=== PATIENT | male | born 1960 | race Caucasian/White ===

== ENCOUNTER 2017-03-09 05:44 | Emergency (ER) | payer OTHER ==
--- NOTE | 2017-03-09 06:10 | C.PDOC ---
History Of Present Illness Patient is a 56 year old male who presents to the ER with a complaint of right elbow pain for the last couple of days. Patient states he has been taking Aleve for the pain with no relief. 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 Patient also notes he sleeps with him arm under him- usually exacerbating the symptoms. Denies any injury or trauma. Time Seen by Provider: 03/09/17 05:59 Chief Complaint (Nursing): Upper Extremity Problem/Injury History/Exam Limitations: no limitations Onset/Duration Of Symptoms: Days (Couple) Current Symptoms Are (Timing): Still Present Exacerbating Factor(s): Worse At Night Past Medical History Reviewed: Historical Data, Nursing Documentation, Vital Signs Vital Signs: Last Vital Signs Temp 98 F 03/09/17 07:02 Pulse 79 03/09/17 07:02 Resp 20 03/09/17 07:02 BP 114/91 H 03/09/17 07:02 Pulse Ox 98 03/09/17 07:02 - Medical History PMH: CAD (had stress test over 6 years ago which was negative. ), Diabetes, HTN Surgical History: No Surg Hx - [facility] Procedures APPLICATION OF SPLINT (02/08/15) Family History: States: Unknown Family Hx - Social History Hx Tobacco Use: No Hx Alcohol Use: No Hx Substance Use: No - Immunization History Hx Tetanus Toxoid Vaccination: No Hx Influenza Vaccination: No Hx Pneumococcal Vaccination: No Review Of Systems Musculoskeletal: Positive for: Arm Pain (Right elbow pain). Negative for: Shoulder Pain, Hand Pain Physical Exam - Physical Exam Appears: Well, Non-toxic, No Acute Distress Skin: Normal Color, Warm, Dry Head: Atraumatic, Normacephalic Eye(s): bilateral: Normal Inspection, EOMI Nose: Normal Oral Mucosa: Moist Chest: Symmetrical Respiratory: No Accessory Muscle Use, Other (Speaking in full sentences) Extremity: Normal ROM, Tenderness (TTP and mild swelling to Right radial aspect of elbow), Capillary Refill (< 2 sec), Other (No erythema, increased warmth, or deformity of right elbow.) Pulses: Left Radial: Normal, Right Radial: Normal Neurological/Psych: Oriented x3, Normal Speech, Normal Motor, Normal Sensation, Other (No focal deficits.) ED Course And Treatment O2 Sat by Pulse Oximetry: 100 (Room air) Pulse Ox Interpretation: Normal Progress Note: Ultram PO administered. X-ray of the right elbow ordered. SILVIO wrap applied and patient advised to follow up with orthopedics in 1-2 days. Disposition - Disposition Disposition: HOME/ ROUTINE Disposition Time: 06:53 Condition: GOOD Additional Instructions: Rest and ice the area. Follow up with bone doctor in 1-2 days. Return to ER if symtpoms persist or worsen. Prescriptions: Meloxicam [Mobic] 15 mg PO DAILY #20 tab Instructions: Tennis Elbow (ED) - Clinical Impression Clinical Impression: Tendonitis - Scribe Statement The provider has reviewed the documentation as recorded by the Scribe Jose Francisco Hirsch All medical record entries made by the Scribe were at my direction and personally dictated by me. I have reviewed the chart and agree that the record accurately reflects my personal performance of the history, physical exam, medical decision making, and the department course for this patient. I have also personally directed, reviewed, and agree with the discharge instructions and disposition.
[2017-03-09 07:04] VITALS: BP 114/91; PULSE 79; RESP 20; TEMP 98
--- NOTE | 2017-03-09 08:21 | RAD ---
PROCEDURE: Radiographs of the right elbow. HISTORY: pain COMPARISON: No prior. FINDINGS: BONES: Normal. No fracture. JOINTS: Normal. No osteoarthritis. SOFT TISSUES: Normal. JOINT EFFUSION: None. OTHER FINDINGS: None. IMPRESSION: Unremarkable radiographs of the right elbow.
[2017-03-11 15:49] VITALS: O2SAT 100
== END 2017-03-09 07:02 | disposition home or self-care (01) ==
LOC: C.ER 05:44
DX: M77.9 Enthesopathy, unspecified (principal)

== ENCOUNTER 2017-05-22 11:11 | Inpatient (IN) | payer OTHER ==
[2017-05-22 12:32] LABS: BASO # 0.1 K/uL (0.0-0.2); BASO % 1.1 % (0.0-2.0); EOS # 0.3 K/uL (0.0-0.7); EOS % 4.8 % (0.0-4.0); HEMOGLOBIN 15.4 g/dL (12.0-18.0); LYMPH % 27.5 % (20.0-40.0); MEAN CELL VOLUME 82.2 fL (80.0-94.0); MEAN CORPUSCULAR HEMOGLOBIN 27.2 pg (27.0-31.0); MEAN CORPUSCULAR HGB CONC 33.1 g/dL (33.0-37.0); MEAN PLATELET VOLUME 8.5 fL (7.2-11.7); MONO # 0.6 K/uL (0.0-0.8); MONO % 7.6 % (0.0-10.0); NEUT # 4.3 K/uL (1.8-7.0); NRBC % 0.1 % (0.0-2.0); RBC 5.67 Mil/uL (4.40-5.90); RED CELL DISTRIBUTION WIDTH 14.5 % (11.5-14.5); WHITE BLOOD COUNT 7.3 K/uL (4.8-10.8)
[2017-05-22 12:41] LABS: PROTHROMBIN TIME 11.1 SECONDS (9.7-12.2)
[2017-05-22 12:43] LABS: GFR AFRICAN-AMERICAN > 60; GFR NON-AFRICAN AMERICAN > 60
[2017-05-22 12:44] LABS: ALB/GLOB RATIO 1.1 (1.0-2.1); ALT/SGPT 47 U/L (21-72); AST/SGOT 28 U/L (17-59); BLOOD UREA NITROGEN 14 mg/dL (9-20); LIPASE 53 U/L (23-300)
--- NOTE | 2017-05-22 12:49 | C.PDOC ---
History Of Present Illness 56 y/o male c/o left sided chest pain intermittently since Sunday, described as a sharp sensation. Patient also complaining of upper back pain that has been going on for longer amount of time. He is unsure if chest pain radiates to the back or not. Patient denies SOB, cough, fever, palpitatins, nausea, vomiting. Patient with PMHx of HTN and DM. He denies cardiac history in himself/family members, is a non-smoker. Time Seen by Provider: 05/22/17 11:58 Chief Complaint (Nursing): Chest Pain History Per: Patient History/Exam Limitations: no limitations Onset/Duration Of Symptoms: Intermittent Episodes Current Symptoms Are (Timing): Still Present Severity: Moderate Associated Symptoms: denies: Nausea, Diaphoresis Recent travel outside of the [place]: No Past Medical History Reviewed: Historical Data, Nursing Documentation, Vital Signs Vital Signs: Last Vital Signs Temp 98.2 F 05/25/17 07:20 Pulse 77 05/25/17 07:20 Resp 18 05/25/17 07:20 BP 121/79 05/25/17 07:20 Pulse Ox 96 05/25/17 07:20 - Medical History PMH: CAD (had stress test over 6 years ago which was negative. ), Diabetes, HTN - [facility] Procedures APPLICATION OF SPLINT (02/08/15) Family History: States: No Known Family Hx - Social History Hx Tobacco Use: No Hx Alcohol Use: No Hx Substance Use: No - Immunization History Hx Tetanus Toxoid Vaccination: No Hx Influenza Vaccination: No Hx Pneumococcal Vaccination: No Review Of Systems Except As Marked, All Systems Reviewed And Found Negative. Constitutional: Negative for: Fever, Chills Cardiovascular: Positive for: Chest Pain. Negative for: Palpitations Respiratory: Negative for: Cough, Shortness of Breath, Wheezing Gastrointestinal: Negative for: Nausea, Vomiting, Abdominal Pain Musculoskeletal: Positive for: Back Pain Skin: Negative for: Rash Neurological: Negative for: Headache, Dizziness Physical Exam - Physical Exam Appears: Non-toxic, No Acute Distress, Other (speaking in full sentences, comfortable) Skin: Normal Color, Warm, Dry, No Rash Head: Normacephalic Eye(s): bilateral: Normal Inspection Oral Mucosa: Moist Chest: Symmetrical, No Tenderness Cardiovascular: Rhythm Regular Respiratory: Normal Breath Sounds, No Rales, No Rhonchi, No Wheezing Gastrointestinal/Abdominal: Normal Exam, Bowel Sounds, Soft, No Tenderness, No Guarding, No Rebound Back: Normal Inspection Extremity: Normal ROM, No Pedal Edema, No Calf Tenderness Extremity: Bilateral: Normal Color And Temperature Neurological/Psych: Oriented x3 ED Course And Treatment - Laboratory Results Result Diagrams: 05/24/17 06:06 05/24/17 06:06 ECG: Interpreted By Me, Viewed By Me (NSR 81 bpm, left axis deviation, no acte ST/T wave changes) ECG Rhythm: Sinus Rhythm ECG Interpretation: No Acute Changes O2 Sat by Pulse Oximetry: 96 (RA) Pulse Ox Interpretation: Normal - Other Rad CXR X-Ray: Viewed By Me, Read By Radiologist Interpretation: IMPRESSION: No acute cardiopulmonary disease. No significant change compared to 11/23/2014 prior radiograph. Progress Note: Bloodwork, EKG, CxR ordered and reviewed. Patient given PO ASA. (+) history of cardiac risk factors, will need obs tele to r/o ACS. Reevaluation Time: 15:10 Reassessment Condition: Improved (Patient resting comfortably, without current chest pain.) - Physician Consult Information Physician Contacted: Brandon Fraser Outcome Of Conversation: Discussed patient with Dr. Fraser, agrees with obs tele for chest pain r/o ACS. Disposition - Disposition Disposition: HOSPITALIZED Disposition Time: 15:14 Condition: STABLE - Clinical Impression Clinical Impression: Chest pain - Scribe Statement The provider has reviewed the documentation as recorded by the Arlen eBaulieu Provider Attestation: All medical record entries made by the Milliibmelissa were at my direction and personally dictated by me. I have reviewed the chart and agree that the record accurately reflects my personal performance of the history, physical exam, medical decision making, and the department course for this patient. I have also personally directed, reviewed, and agree with the discharge instructions and disposition. Decision To Admit - Pt Status Changed To: Hospital Disposition Of: Observation - . Bed Request Type: Telemetry Admitting Physician: Brandon Fraser Patient Diagnosis: Chest pain
[2017-05-22 12:53] LABS: CK-MB 2.33 ng/mL (0.0-3.38)
--- NOTE | 2017-05-22 12:53 | RAD ---
HISTORY: CP COMPARISON: Comparison made prior chest radiograph dated 11/23/2014. TECHNIQUE: Chest PA and lateral FINDINGS: LUNGS: No active pulmonary disease. PLEURA: No significant pleural effusion identified. No pneumothorax apparent. CARDIOVASCULAR: Normal. OSSEOUS STRUCTURES: No significant abnormalities. VISUALIZED UPPER ABDOMEN: Normal. OTHER FINDINGS: None. IMPRESSION: No acute cardiopulmonary disease. No significant change compared to 11/23/2014 prior radiograph.
--- NOTE | 2017-05-22 16:50 | CP.PCM.PN ---
Subjective - Date & Time of Evaluation Date of Evaluation: 05/22/17 Time of Evaluation: 17:27 - Subjective Subjective: MEDICINE PROGRESS NOTE FOR DR. MARTINEZ CC: chest pain HPI: 56 year old male with PMHx significant for HTN and DM presents with complaints of non-reproducible chest pain which began on Sunday. The pain is non -radiating and has been intermittent in nature; waxing and waning with varying intensity. He states that he did not see a need to go to the hospital and continued with his daily activities. On his way to work this morning, patient states that he experienced a sharp left sided substernal pain which he rated approx 8/10. Patient states that he decided to go straight to the hospital for further evaluation. He admits to blurry vision. Patient denies shortness of breath, palpitations, nausea, vomiting, paresthesias, headaches, or bowel changes at this time. PMHx- as noted above PSHX- Repair of left meniscus tear Fam Hx- denies Social Hx- denies drinking alcohol, illicit drug use or tobacco use Meds- Januvia 100 mg PO daily, Metformin 500 mg PO BID, Cozaar 100 mg PO daily , Norvasc 5mg PO daily, Naproxen PRN as needed Allergies- Sulfa ( causes pruritus) PMD- Dr Yeni Lopez ( office in [facility]) Objective - Vital Signs/Intake and Output Vital Signs (last 24 hours): Temp Pulse Resp BP Pulse Ox 97.9 F 82 23 139/90 95 05/22/17 11:15 05/22/17 15:57 05/22/17 15:57 05/22/17 15:57 05/22/17 15:57 - Labs Labs: PT 11.1 SECONDS (9.7-12.2) 05/22/17 12:29 INR 1.0 05/22/17 12:29 APTT 29 SECONDS (21-34) 05/22/17 12:29 - Constitutional Appears: Non-toxic, No Acute Distress - Head Exam Head Exam: ATRAUMATIC, NORMAL INSPECTION, NORMOCEPHALIC - Eye Exam Eye Exam: EOMI, Normal appearance, PERRL Pupil Exam: NORMAL ACCOMODATION, PERRL - ENT Exam ENT Exam: Mucous Membranes Moist - Neck Exam Neck Exam: Full ROM - Respiratory Exam Respiratory Exam: NORMAL BREATHING PATTERN. absent: Wheezes - Cardiovascular Exam Cardiovascular Exam: +S1, +S2. absent: Tachycardia - GI/Abdominal Exam GI & Abdominal Exam: Soft, Normal Bowel Sounds. absent: Distended, Firm - Extremities Exam Extremities Exam: Full ROM, Normal Capillary Refill. absent: Pedal Edema, Tenderness - Back Exam Back Exam: Full ROM - Neurological Exam Neurological Exam: Alert, Awake, Oriented x3 - Psychiatric Exam Psychiatric exam: Normal Affect, Normal Mood - Skin Skin Exam: Dry, Intact, Normal Color, Warm Assessment and Plan (1) Chest pain Assessment & Plan: RENNY 1 negative F/U ROMIs with EKGS Telemetry Heart Healthy diet Cont to monitor ASA 325 mg given in ED. ASA 81 mg daily to start, Crestor 2.5 mg PO daily, Zestril 5 mg PO daily, Lopressor 25 mg PO BID F/U AM labs Status: Acute (2) Hypertension Assessment & Plan: Amlodipine 5 mg PO daily Cozaar 100 mg PO daily Lopressor Zestril Cont to monitor Status: Acute (3) Diabetes mellitus Assessment & Plan: Accuchecks ISS Low dose Metformin 500 mg PO BID Januvia 100 mg PO daily F/U Hgb a1c, Lipid panel and AM labs Status: Acute (4) Prophylactic measure Assessment & Plan: SCDs Pepcid 20 mg PO BID Status: Acute - Assessment and Plan (Free Text) Assessment: Management per Dr. Martinez
[2017-05-22 19:58] LABS: CK-MB 1.84 ng/mL (0.0-3.38)
[2017-05-22] MEDS: Rosuvastatin Calcium 2.5 mg Tab PO SCH (21:34)
[2017-05-22] MEDS: (Novolog) Insulin Aspart, Recombinant 100 u/ml 10 ml vial SC SCH (22:00)
[2017-05-23 01:49] LABS: CK-MB 1.53 ng/mL (0.0-3.38)
[2017-05-23 06:42] LABS: BASO # 0.1 K/uL (0.0-0.2); BASO % 0.8 % (0.0-2.0); EOS # 0.4 K/uL (0.0-0.7); EOS % 4.5 % (0.0-4.0); HEMOGLOBIN 15.9 g/dL (12.0-18.0); LYMPH # 2.2 K/uL (1.0-4.3); LYMPH % 28.5 % (20.0-40.0); MEAN CELL VOLUME 82.1 fL (80.0-94.0); MEAN CORPUSCULAR HEMOGLOBIN 27.4 pg (27.0-31.0); MEAN CORPUSCULAR HGB CONC 33.3 g/dL (33.0-37.0); MEAN PLATELET VOLUME 8.8 fL (7.2-11.7); MONO # 0.6 K/uL (0.0-0.8); MONO % 7.4 % (0.0-10.0); NEUT # 4.6 K/uL (1.8-7.0); NEUT % 58.8 % (50.0-75.0); RBC 5.81 Mil/uL (4.40-5.90); RED CELL DISTRIBUTION WIDTH 14.9 % (11.5-14.5); WHITE BLOOD COUNT 7.8 K/uL (4.8-10.8)
[2017-05-23 06:44] LABS: ALBUMIN 3.8 g/dL (3.5-5.0)
[2017-05-23 06:47] LABS: ALB/GLOB RATIO 1.1 (1.0-2.1); ALT/SGPT 43 U/L (21-72); AST/SGOT 25 U/L (17-59); BLOOD UREA NITROGEN 16 mg/dL (9-20); CK-MB 1.69 ng/mL (0.0-3.38); GFR AFRICAN-AMERICAN > 60; GFR NON-AFRICAN AMERICAN > 60
[2017-05-23 06:48] LABS: HDL CHOLESTEROL 34 mg/dL (30-70); MAGNESIUM 1.7 mg/dL (1.6-2.3)
[2017-05-23 06:59] LABS: LDL CHOLESTEROL 98 mg/dL (0-129)
[2017-05-23] MEDS: (Novolog) Insulin Aspart, Recombinant 100 u/ml 10 ml vial SC SCH ×4 (08:42→22:30)
--- NOTE | 2017-05-23 16:25 | CP.PCM.PN ---
Subjective - Date & Time of Evaluation Date of Evaluation: 05/23/17 Time of Evaluation: 10:23 - Subjective Subjective: PGY 2 Medicine Note- Dr. Ferris's service Pt seen and examined . Patient reported of a headache which later responded to tylenol. Patient states that his chest pain returned for afew minutes around 11 am but later resolved as well. On further questioning patient admitted to having poor diet choices. Patient states that he consumed a lot of soda and sugary beverages daily. He admitted to putting 8 packets of sugar in each cup of coffee that he has daily. Patient stated that he would like to make changes. He denies palpitations, nausea, vomiting, diarrhea, constipation at this time. Objective - Vital Signs/Intake and Output Vital Signs (last 24 hours): Temp Pulse Resp BP Pulse Ox 98.0 F 67 20 134/90 97 05/23/17 08:24 05/23/17 15:59 05/23/17 08:24 05/23/17 09:53 05/23/17 08:24 - Medications Medications: Current Medications Amlodipine Besylate (Norvasc) [address] [facility] Last Admin: 05/23/17 09:34 Dose: 5 mg Aspirin (Ecotrin) [address] [facility] Last Admin: 05/23/17 09:34 Dose: 81 mg Famotidine (Pepcid) [address] [facility] Last Admin: 05/23/17 09:34 Dose: 20 mg Insulin Aspart (Novolog) [address] [facility] PRN Reason: Protocol Last Admin: 05/23/17 12:30 Dose: 2 unit Lisinopril (Zestril) [address] [facility] Last Admin: 05/23/17 09:34 Dose: 5 mg Losartan Potassium (Cozaar) [address] [facility] Last Admin: 05/23/17 09:34 Dose: 100 mg Metformin HCl (Glucophage) [address] [facility] Last Admin: 05/23/17 09:34 Dose: 500 mg Metoprolol Tartrate (Lopressor) 12.[address] [facility] Rosuvastatin Calcium (Crestor) 2.[address] [facility] Last Admin: 05/22/17 21:34 Dose: 2.5 mg Sitagliptin Phosphate (Januvia) [address] [facility] Last Admin: 05/23/17 09:34 Dose: 100 mg - Labs Labs: 05/23/17 06:06 05/23/17 06:06 PT 11.1 SECONDS (9.7-12.2) 05/22/17 12:29 INR 1.0 05/22/17 12:29 APTT 29 SECONDS (21-34) 05/22/17 12:29 - Constitutional Appears: Non-toxic, No Acute Distress - Head Exam Head Exam: ATRAUMATIC, NORMAL INSPECTION, NORMOCEPHALIC - Eye Exam Eye Exam: EOMI, Normal appearance, PERRL Pupil Exam: NORMAL ACCOMODATION - ENT Exam ENT Exam: Mucous Membranes Moist, Normal Exam - Neck Exam Neck Exam: Full ROM, Normal Inspection - Respiratory Exam Respiratory Exam: Clear to Ausculation Bilateral, NORMAL BREATHING PATTERN. absent: Wheezes - Cardiovascular Exam Cardiovascular Exam: +S1, +S2 - GI/Abdominal Exam GI & Abdominal Exam: Soft, Normal Bowel Sounds - Extremities Exam Extremities Exam: Full ROM, Normal Capillary Refill. absent: Pedal Edema, Tenderness - Back Exam Back Exam: Full ROM - Neurological Exam Neurological Exam: Alert, Awake, CN II-XII Intact, Oriented x3 - Psychiatric Exam Psychiatric exam: Normal Affect, Normal Mood - Skin Skin Exam: Dry, Intact, Normal Color, Warm Assessment and Plan (1) Chest pain Status: Acute (2) Hypertension Status: Chronic (3) Diabetes mellitus Status: Chronic (4) Prophylactic measure Status: Acute - Assessment and Plan (Free Text) Assessment: Chest pain Assessment & Plan: ERNNY x 3 negative EKG- NSR, possible left atrial enlargement Telemetry Heart Healthy diet Cont to monitor ASA 325 mg given in ED. ASA 81 mg daily to start, Crestor 2.5 mg PO daily, Zestril 5 mg PO daily, Lopressor decreased to 12.5 mg PO BID in light of hypothyroidism Triglycerides 276, HDL 34, LDL 98 Stress test in AM; NPO past midnight Status: Acute Hypertension Assessment & Plan: Amlodipine 5 mg PO daily Cozaar 100 mg PO daily Lopressor Zestril Cont to monitor Status: Acute Diabetes mellitus Assessment & Plan: Accuchecks ISS Low dose Metformin 500 mg PO BID Januvia 100 mg PO daily Hgb a1c 11.7 ,Patient's A1c in 2014 was 7.1. Lipid panel as noted above and AM labs Patient is active in sports. Dietary counseling reinforced Patient needs stricter control outpatient as well. Will benefit from insulin. Status: Acute Hypothyroid TSH 10.10 Free T4 0.75 Will start synthroid Patient will need outpatient followup Prophylactic measure Assessment & Plan: SCDs Pepcid 20 mg PO BID Status: Acute - Assessment and Plan (Free Text) Assessment: All Management per Dr. Ferris
--- NOTE | 2017-05-23 22:09 | CP.PCM.CON ---
History of Present Illness - History of Present Illness History of Present Illness: patient seen and evaluated Admitted for chest pain Multiple risk factors including DM 2 For stress test in am Past Patient History - Infectious Disease Hx of Infectious Diseases: None - Past Medical History & Family History Past Medical History?: Yes - Past Social History Smoking Status: Never Smoked - CARDIAC Hx Hypertension: Yes - PULMONARY Hx Respiratory Disorders: No - NEUROLOGICAL Hx Neurological Disorder: No - HEENT Hx HEENT Problems: Yes Other/Comment: left eye surgery - RENAL Hx Chronic Kidney Disease: No - ENDOCRINE/METABOLIC Hx Endocrine Disorders: Yes Hx Diabetes Mellitus Type 2: Yes - HEMATOLOGICAL/ONCOLOGICAL Hx Blood Disorders: No Hx Blood Transfusions: No - INTEGUMENTARY Hx Dermatological Problems: No - MUSCULOSKELETAL/RHEUMATOLOGICAL Hx Falls: No - GASTROINTESTINAL Hx Gastrointestinal Disorders: No - GENITOURINARY/GYNECOLOGICAL Hx Genitourinary Disorders: No - PSYCHIATRIC Hx Substance Use: No - SURGICAL HISTORY Hx Surgeries: Yes Hx Eye Surgery: Yes (corneal surgery) Hx Orthopedic Surgery: Yes (LEFT KNEE MINISCUS REPAIR) - ANESTHESIA Hx Anesthesia: Yes Hx Anesthesia Reactions: No Hx Malignant Hyperthermia: No Has any member of the family had a problem w/ anesthesia?: No Meds Allergies/Adverse Reactions: Allergies Allergy/AdvReac Type Severity Reaction Status Date / Time Sulfa (Sulfonamide Allergy Verified 05/22/17 11:16 Antibiotics) - Medications Medications: Current Medications Amlodipine Besylate (Norvasc) 5 mg PO DAILY [facility] Last Admin: 05/23/17 09:34 Dose: 5 mg Aspirin (Ecotrin) 81 mg PO DAILY [facility] Last Admin: 05/23/17 09:34 Dose: 81 mg Famotidine (Pepcid) 20 mg PO BID [facility] Last Admin: 05/23/17 18:13 Dose: 20 mg Insulin Aspart (Novolog) 0 unit SC ACHS [facility] PRN Reason: Protocol Last Admin: 05/23/17 18:13 Dose: 2 unit Levothyroxine Sodium (Synthroid) 100 mcg PO DAILY@0630 [facility] Lisinopril (Zestril) 5 mg PO DAILY [facility] Last Admin: 05/23/17 09:34 Dose: 5 mg Losartan Potassium (Cozaar) 100 mg PO DAILY [facility] Last Admin: 05/23/17 09:34 Dose: 100 mg Metformin HCl (Glucophage) 500 mg PO BID [facility] Last Admin: 05/23/17 18:13 Dose: 500 mg Metoprolol Tartrate (Lopressor) 12.5 mg PO BID [facility] Rosuvastatin Calcium (Crestor) 2.5 mg PO HS [facility] Last Admin: 05/22/17 21:34 Dose: 2.5 mg Sitagliptin Phosphate (Januvia) 100 mg PO DAILY [facility] Last Admin: 05/23/17 09:34 Dose: 100 mg Results - Vital Signs Recent Vital Signs: Last Vital Signs Temp 97.8 F 05/23/17 16:00 Pulse 69 05/23/17 16:00 Resp 20 05/23/17 16:00 BP 116/72 05/23/17 16:00 Pulse Ox 95 05/23/17 16:00 - Labs Result Diagrams: 05/23/17 06:06 05/23/17 06:06 Labs: Laboratory Results - last 24 hr 05/23/17 05/23/17 05/23/17 00:48 06:06 06:06 WBC 7.8 RBC 5.81 Hgb 15.9 Hct 47.7 MCV 82.1 MCH 27.4 MCHC 33.3 RDW 14.9 H Plt Count 349 MPV 8.8 Neut % (Auto) 58.8 Lymph % (Auto) 28.5 [place] % (Auto) 7.4 Eos % (Auto) 4.5 H Baso % (Auto) 0.8 Neut # 4.6 Lymph # 2.2 [place] # 0.6 Eos # 0.4 Baso # 0.1 Sodium 134 Potassium 3.9 Chloride 98 Carbon Dioxide 24 Anion Gap 16 BUN 16 Creatinine 1.0 Est GFR ( Amer) > 60 Est GFR (Non-Af Amer) > 60 POC Glucose (mg/dL) Random Glucose 252 H Hemoglobin A1c Calcium 9.0 Phosphorus 3.0 Magnesium 1.7 Total Bilirubin 0.8 AST 25 ALT 43 Alkaline Phosphatase 103 Total Creatine Kinase 129 114 CK-MB (Mass) 1.53 1.69 Troponin I, Quant < 0.0120 Total Protein 7.5 Albumin 3.8 Globulin 3.6 Albumin/Globulin Ratio 1.1 Triglycerides 276 H D Cholesterol 179 LDL Cholesterol Direct 98 HDL Cholesterol 34 Free T4 TSH 3rd Generation 10.10 H 05/23/17 05/23/17 05/23/17 06:06 06:06 06:06 WBC RBC Hgb Hct MCV MCH MCHC RDW Plt Count MPV Neut % (Auto) Lymph % (Auto) [place] % (Auto) Eos % (Auto) Baso % (Auto) Neut # Lymph # [place] # Eos # Baso # Sodium Potassium Chloride Carbon Dioxide Anion Gap BUN Creatinine Est GFR ( Amer) Est GFR (Non-Af Amer) POC Glucose (mg/dL) 232 H Random Glucose Hemoglobin A1c 11.7 H D Calcium Phosphorus Magnesium Total Bilirubin AST ALT Alkaline Phosphatase Total Creatine Kinase CK-MB (Mass) Troponin I, Quant Total Protein Albumin Globulin Albumin/Globulin Ratio Triglycerides Cholesterol LDL Cholesterol Direct HDL Cholesterol Free T4 0.75 L TSH 3rd Generation 05/23/17 05/23/17 05/23/17 11:04 16:20 21:43 WBC RBC Hgb Hct MCV MCH MCHC RDW Plt Count MPV Neut % (Auto) Lymph % (Auto) [place] % (Auto) Eos % (Auto) Baso % (Auto) Neut # Lymph # [place] # Eos # Baso # Sodium Potassium Chloride Carbon Dioxide Anion Gap BUN Creatinine Est GFR ( Amer) Est GFR (Non-Af Amer) POC Glucose (mg/dL) 248 H 208 H 227 H Random Glucose Hemoglobin A1c Calcium Phosphorus Magnesium Total Bilirubin AST ALT Alkaline Phosphatase Total Creatine Kinase CK-MB (Mass) Troponin I, Quant Total Protein Albumin Globulin Albumin/Globulin Ratio Triglycerides Cholesterol LDL Cholesterol Direct HDL Cholesterol Free T4 TSH 3rd Generation
[2017-05-23] MEDS: Rosuvastatin Calcium 2.5 mg Tab PO SCH (22:15)
[2017-05-24 06:22] LABS: ALBUMIN 3.6 g/dL (3.5-5.0)
[2017-05-24 06:24] LABS: GFR AFRICAN-AMERICAN > 60; GFR NON-AFRICAN AMERICAN > 60
[2017-05-24 06:25] LABS: ALB/GLOB RATIO 1.1 (1.0-2.1); ALT/SGPT 44 U/L (21-72); AST/SGOT 23 U/L (17-59); BLOOD UREA NITROGEN 18 mg/dL (9-20)
[2017-05-24 06:26] LABS: CALCIUM 8.7 mg/dl (8.6-10.4); MAGNESIUM 1.7 mg/dL (1.6-2.3)
[2017-05-24 06:32] LABS: BASO # 0.1 K/uL (0.0-0.2); BASO % 0.9 % (0.0-2.0); EOS # 0.4 K/uL (0.0-0.7); EOS % 4.2 % (0.0-4.0); HEMOGLOBIN 15.6 g/dL (12.0-18.0); LYMPH # 2.2 K/uL (1.0-4.3); LYMPH % 25.3 % (20.0-40.0); MEAN CELL VOLUME 82.4 fL (80.0-94.0); MEAN CORPUSCULAR HEMOGLOBIN 26.9 pg (27.0-31.0); MEAN CORPUSCULAR HGB CONC 32.6 g/dL (33.0-37.0); MEAN PLATELET VOLUME 8.7 fL (7.2-11.7); MONO # 0.7 K/uL (0.0-0.8); MONO % 7.7 % (0.0-10.0); NEUT # 5.4 K/uL (1.8-7.0); NEUT % 61.9 % (50.0-75.0); RBC 5.81 Mil/uL (4.40-5.90); RED CELL DISTRIBUTION WIDTH 14.9 % (11.5-14.5); WHITE BLOOD COUNT 8.7 K/uL (4.8-10.8)
[2017-05-24] MEDS: Levothyroxine 100 MCG TAB PO SCH (06:41)
[2017-05-24] MEDS: (Novolog) Insulin Aspart, Recombinant 100 u/ml 10 ml vial SC SCH ×5 (08:55→21:38)
--- NOTE | 2017-05-24 11:47 | CARD ---
APPROVED REPORT EKG Measurement Heart [id number] <Conclusion> Normal sinus rhythm Possible Left atrial enlargement Poor R wave progression. Abnormal ECG
--- NOTE | 2017-05-24 15:18 | CP.PCM.PN ---
Subjective - Date & Time of Evaluation Date of Evaluation: 05/24/17 Time of Evaluation: 13:00 - Subjective Subjective: PGY3 Medicine Note - Dr. Ferris's service: Patient seen and examined at bedside s/p Lexiscan. Patient was only able to tolerate exercise stress test for [address] Melton decided to do a lexiscan. We are awaiting results. Patient denies fever, chills, chest pain, SOB, abdominal pain, nausea, vomiting, diarrhea, constipation, dysuria. Objective - Vital Signs/Intake and Output Vital Signs (last 24 hours): Temp Pulse Resp BP Pulse Ox 98.2 F 68 118 H 117/79 99 05/24/17 08:08 05/24/17 08:08 05/24/17 08:08 05/24/17 08:08 05/24/17 08:08 - Medications Medications: Current Medications Amlodipine Besylate (Norvasc) 5 mg PO DAILY [facility] Last Admin: 05/24/17 12:43 Dose: 5 mg Aspirin (Ecotrin) 81 mg PO DAILY [facility] Last Admin: 05/24/17 12:43 Dose: 81 mg Famotidine (Pepcid) 20 mg PO BID [facility] Last Admin: 05/24/17 12:43 Dose: 20 mg Insulin Aspart (Novolog) 0 unit SC ACHS [facility] PRN Reason: Protocol Last Admin: 05/24/17 12:44 Dose: 4 unit Levothyroxine Sodium (Synthroid) 100 mcg PO DAILY@0630 [facility] Last Admin: 05/24/17 06:41 Dose: 100 mcg Lisinopril (Zestril) 5 mg PO DAILY [facility] Last Admin: 05/24/17 12:43 Dose: 5 mg Losartan Potassium (Cozaar) 100 mg PO DAILY [facility] Last Admin: 05/24/17 12:43 Dose: 100 mg Metformin HCl (Glucophage) 500 mg PO BID [facility] Last Admin: 05/24/17 11:55 Dose: Not Given Metoprolol Tartrate (Lopressor) 12.5 mg PO BID [facility] Last Admin: 05/24/17 11:55 Dose: Not Given Rosuvastatin Calcium (Crestor) 2.5 mg PO HS [facility] Last Admin: 05/23/17 22:15 Dose: 2.5 mg Sitagliptin Phosphate (Januvia) 100 mg PO DAILY [facility] Last Admin: 05/24/17 12:43 Dose: 100 mg - Labs Labs: 05/24/17 06:06 05/24/17 06:06 PT 11.1 SECONDS (9.7-12.2) 05/22/17 12:29 INR 1.0 05/22/17 12:29 APTT 29 SECONDS (21-34) 05/22/17 12:29 - Constitutional Appears: Non-toxic, No Acute Distress - Head Exam Head Exam: NORMAL INSPECTION - Eye Exam Eye Exam: EOMI - ENT Exam ENT Exam: Mucous Membranes Moist - Respiratory Exam Respiratory Exam: Clear to Ausculation Bilateral, NORMAL BREATHING PATTERN. absent: Rales, Rhonchi, Wheezes - Cardiovascular Exam Cardiovascular Exam: REGULAR RHYTHM, +S1, +S2. absent: Gallop, Rubs, Murmur - GI/Abdominal Exam GI & Abdominal Exam: Soft, Normal Bowel Sounds. absent: Tenderness - Extremities Exam Extremities Exam: absent: Pedal Edema - Neurological Exam Neurological Exam: Alert, Awake, Oriented x3 - Psychiatric Exam Psychiatric exam: Normal Affect, Normal Mood - Skin Skin Exam: Normal Color, Warm Assessment and Plan - Assessment and Plan (Free Text) Assessment: Chest pain Assessment & Plan: RENNY x 3 negative EKG- NSR, possible left atrial enlargement Telemetry Heart Healthy diet Cont to monitor ASA 325 mg given in ED. ASA 81 mg daily to start, Crestor 2.5 mg PO daily, Zestril 5 mg PO daily, Lopressor decreased to 12.5 mg PO BID in light of hypothyroidism Triglycerides 276, HDL 34, LDL 98 F/U results of Lexiscan Status: Acute Hypertension Assessment & Plan: Amlodipine 5 mg PO daily Cozaar 100 mg PO daily Lopressor Zestril Cont to monitor Status: Acute Diabetes mellitus Assessment & Plan: Accuchecks ISS Low dose Metformin 500 mg PO BID Januvia 100 mg PO daily Hgb a1c 11.7 ,Patient's A1c in 2014 was 7.1. Lipid panel as noted above and AM labs Patient is active in sports. Dietary counseling reinforced Patient needs stricter control outpatient as well. Will benefit from insulin. Status: Acute Hypothyroid TSH 10.10 Free T4 0.75 Synthroid 100mcg PO daily started Patient will need outpatient followup Prophylactic measure Assessment & Plan: SCDs Pepcid 20 mg PO BID Status: Acute
[2017-05-24 16:46] VITALS: O2SAT 96
[2017-05-24] MEDS: Rosuvastatin Calcium 2.5 mg Tab PO SCH (21:25)
--- NOTE | 2017-05-24 22:24 | CP.PCM.PN ---
Subjective - Date & Time of Evaluation Date of Evaluation: 05/24/17 Time of Evaluation: 22:21 - Subjective Subjective: Patient s/p stress test Patient exercised for more than 8 minutes with 11.4 METS Target Heart Rate achieved No EKG changes or Chest pain during the peak stress test There is some diaphragmatic attenuation in stress images Normal stress test Out patient cardiology follow up in 1 month Objective - Vital Signs/Intake and Output Vital Signs (last 24 hours): Temp Pulse Resp BP Pulse Ox 97.7 F 83 20 111/78 96 05/24/17 15:45 05/24/17 15:45 05/24/17 15:45 05/24/17 15:45 05/24/17 15:45 - Medications Medications: Current Medications Amlodipine Besylate (Norvasc) 5 mg PO DAILY [facility] Last Admin: 05/24/17 12:43 Dose: 5 mg Aspirin (Ecotrin) 81 mg PO DAILY [facility] Last Admin: 05/24/17 12:43 Dose: 81 mg Famotidine (Pepcid) 20 mg PO BID [facility] Last Admin: 05/24/17 18:10 Dose: 20 mg Insulin Aspart (Novolog) 0 unit SC [facility] PRN Reason: Protocol Last Admin: 05/24/17 21:38 Dose: Not Given Levothyroxine Sodium (Synthroid) 100 mcg PO DAILY@0630 [facility] Last Admin: 05/24/17 06:41 Dose: 100 mcg Lisinopril (Zestril) 5 mg PO DAILY [facility] Last Admin: 05/24/17 12:43 Dose: 5 mg Losartan Potassium (Cozaar) 100 mg PO DAILY [facility] Last Admin: 05/24/17 12:43 Dose: 100 mg Metformin HCl (Glucophage) 500 mg PO BID [facility] Last Admin: 05/24/17 18:02 Dose: 500 mg Metoprolol Tartrate (Lopressor) 12.5 mg PO BID [facility] Last Admin: 05/24/17 18:02 Dose: 12.5 mg Rosuvastatin Calcium (Crestor) 2.5 mg PO HS [facility] Last Admin: 05/24/17 21:25 Dose: 2.5 mg Sitagliptin Phosphate (Januvia) 100 mg PO DAILY [facility] Last Admin: 05/24/17 12:43 Dose: 100 mg - Labs Labs: PT 11.1 SECONDS (9.7-12.2) 05/22/17 12:29 INR 1.0 05/22/17 12:29 APTT 29 SECONDS (21-34) 05/22/17 12:29
--- NOTE | 2017-05-24 23:30 | CARD ---
APPROVED REPORT EXAM: Two-dimensional and M-mode echocardiogram with Doppler and color Doppler. Other Information Quality : GoodRhythm : NSR INDICATION Chest Pain RISK FACTORS Hypertension Diabetes M-Mode DIMENSIONS RVDd1.94 (2.1-3.2cm)Left Atrium (MM)3.58 (2.5-4.0cm) IVSd0.88 (0.7-1.1cm)Aortic Root3.10 (2.2-3.7cm) LVDd4.59 (4.0-5.6cm)Aortic Cusp Exc.2.00 (1.5-2.0cm) PWd1.09 (0.7-1.1cm)FS (%) 50 % LVDs2.31 (2.0-3.8cm)LVEF (%)81 (>50%) Mitral Valve MV E Filtkwud37.1cm/sMV A Hbekkwil30.7cm/sE/A ratio0.8 TDI E/Lateral E'0.0E/Medial E'0.0 Tricuspid Valve TR Peak Ogtakgmv145qh/sTR Peak Gr.08yzNbWZPL11gdFn LEFT VENTRICLE The left ventricle is normal size. There is normal left ventricular wall thickness. Left ventricle systolic function is normal. The Ejection Fraction is >70%. There is normal LV segmental wall motion. The left ventricular diastolic function is normal. There is no ventricular septal defect visualized. RIGHT VENTRICLE The right ventricle is normal size. The right ventricular systolic function is normal. ATRIA The left atrium size is normal. The right atrium size is normal. AORTIC VALVE The aortic valve is tri-cuspid. The aortic valve is normal in structure. No aortic regurgitation is present. There is no aortic valvular stenosis. MITRAL VALVE The mitral valve is normal in structure. There is no evidence of mitral valve prolapse. There is no mitral valve regurgitation noted. TRICUSPID VALVE The tricuspid valve is normal in structure. There is trace tricuspid regurgitation. Right ventricular systolic pressure is estimated at less than 30 mmHg. There is no pulmonary hypertension. PULMONIC VALVE The pulmonic valve is not well visualized. There is trace pulmonic valvular regurgitation. GREAT VESSELS The IVC is normal in size and collapses >50% with inspiration. PERICARDIAL EFFUSION There is no pericardial effusion. <Conclusion> Left ventricle systolic function is normal. The Ejection Fraction is >70%. The left ventricular diastolic function is normal.
[2017-05-25] MEDS: Levothyroxine 100 MCG TAB PO SCH (05:43)
[2017-05-25 08:18] VITALS: BP 121/79; PULSE 77; RESP 18; TEMP 98.2
[2017-05-25] MEDS: (Novolog) Insulin Aspart, Recombinant 100 u/ml 10 ml vial SC SCH ×2 (08:37→13:02)
--- NOTE | 2017-05-25 09:23 | HP ---
HISTORY OF PRESENT ILLNESS: Mr. Romero is a 56-year-old male with diabetes *------*, chest pain, weakness, fatigue and tiredness. The patient came to the hospital for admission. The patient denies cough or wheezing. PHYSICAL EXAMINATION: GENERAL: The patient is awake, alert and oriented. VITAL SIGNS: Temperature 98, pulse 90. HEENT: Within normal limits. NECK: Supple. CHEST: Symmetric. HEART: Regular. ABDOMEN: Soft. EXTREMITIES: No edema. The patient suffered a *------*. Patient on bedrest, supportive care, Cardiac enzymes, cardiology evaluation. Brandon Ferris MD
--- NOTE | 2017-05-25 12:41 | CARD ---
APPROVED REPORT EKG Measurement Heart [id number] <Conclusion> Normal sinus rhythm Left axis deviation Abnormal ECG
--- NOTE | 2017-05-25 12:42 | CARD ---
APPROVED REPORT EKG Measurement Heart [id number] MT [id number] <Conclusion> Normal sinus rhythm Left axis deviation Abnormal ECG
--- NOTE | 2017-05-25 13:58 | CP.PCM.PN ---
Subjective - Date & Time of Evaluation Date of Evaluation: 05/25/17 Time of Evaluation: 13:54 - Subjective Subjective: PGY2 progress note for Dr. Ferris Pt is seen and examined at bedside. No acute events overnight. Patient's chest pain has improved. He denies having any CP, SOB, abd pain, N/v/d/C. atient is tolerating diet. 12 point ROS are negative except for the above mentioned. Objective - Vital Signs/Intake and Output Vital Signs (last 24 hours): Temp Pulse Resp BP Pulse Ox 98.2 F 77 18 121/79 96 05/25/17 07:20 05/25/17 07:20 05/25/17 07:20 05/25/17 07:20 05/25/17 07:20 - Medications Medications: Current Medications Amlodipine Besylate (Norvasc) 5 mg PO DAILY [facility] Last Admin: 05/25/17 09:37 Dose: 5 mg Aspirin (Ecotrin) 81 mg PO DAILY [facility] Last Admin: 05/25/17 09:37 Dose: 81 mg Famotidine (Pepcid) 20 mg PO BID [facility] Last Admin: 05/25/17 09:37 Dose: 20 mg Insulin Aspart (Novolog) 0 unit SC ACHS [facility] PRN Reason: Protocol Last Admin: 05/25/17 13:02 Dose: 1 unit Levothyroxine Sodium (Synthroid) 100 mcg PO DAILY@0630 [facility] Last Admin: 05/25/17 05:43 Dose: 100 mcg Lisinopril (Zestril) 5 mg PO DAILY [facility] Last Admin: 05/25/17 09:37 Dose: 5 mg Losartan Potassium (Cozaar) 100 mg PO DAILY [facility] Last Admin: 05/25/17 09:36 Dose: 100 mg Metformin HCl (Glucophage) 500 mg PO BID [facility] Last Admin: 05/25/17 09:37 Dose: 500 mg Metoprolol Tartrate (Lopressor) 12.5 mg PO BID [facility] Last Admin: 05/25/17 09:36 Dose: 12.5 mg Rosuvastatin Calcium (Crestor) 2.5 mg PO HS [facility] Last Admin: 05/24/17 21:25 Dose: 2.5 mg Sitagliptin Phosphate (Januvia) 100 mg PO DAILY [facility] Last Admin: 05/25/17 09:36 Dose: 100 mg - Labs Labs: PT 11.1 SECONDS (9.7-12.2) 05/22/17 12:29 INR 1.0 05/22/17 12:29 APTT 29 SECONDS (21-34) 05/22/17 12:29 - Constitutional Appears: Non-toxic, No Acute Distress - Head Exam Head Exam: ATRAUMATIC - Eye Exam Eye Exam: EOMI - Respiratory Exam Respiratory Exam: Clear to Ausculation Bilateral. absent: Rales, Rhonchi, Wheezes - Cardiovascular Exam Cardiovascular Exam: REGULAR RHYTHM, +S1, +S2 - GI/Abdominal Exam GI & Abdominal Exam: Soft, Normal Bowel Sounds. absent: Firm, Guarding, Rigid, Tenderness, Organomegaly - Extremities Exam Extremities Exam: absent: Pedal Edema, Tenderness - Neurological Exam Neurological Exam: Alert, Awake, Oriented x3 - Psychiatric Exam Psychiatric exam: Normal Affect, Normal Mood - Skin Skin Exam: Dry, Intact, Normal Color, Warm Assessment and Plan - Assessment and Plan (Free Text) Assessment: Chest pain Assessment & Plan: Stress test negative. Cardio recommends o/p f/u in 1 month RENNY x 3 negative EKG- NSR, possible left atrial enlargement ASA 325 mg given in ED. ASA 81 mg daily to start, Crestor 2.5 mg PO daily, Zestril 5 mg PO daily, Lopressor decreased to 12.5 mg PO BID in light of hypothyroidism Triglycerides 276, HDL 34, LDL 98 Hypertension Amlodipine 5 mg PO daily Cozaar 100 mg PO daily Lopressor Zestril Diabetes mellitus Assessment & Plan: Accuchecks ISS Low dose Metformin 500 mg PO BID Januvia 100 mg PO daily Hgb a1c 11.7 ,Patient's A1c in 2014 was 7.1. Lipid panel as noted above and AM labs Patient is active in sports. Dietary counseling reinforced Patient needs stricter control outpatient as well. Will benefit from insulin. Hypothyroid TSH 10.10 Free T4 0.75 Synthroid 100mcg PO daily started Patient will need outpatient followup Prophylactic measure Assessment & Plan: SCDs Pepcid 20 mg PO BID Orders and management per Dr. Ferris Patient is stable for discharge home per Dr. Ferris. Patient is to follow up with PMD upon discharge. 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 Patient is discharged on the following medications: Aspirin 81 mg po qd, Synthroid 100 mcg po qd, Crestor 2.5 mg po HS. Patient is to continue home medications as prescribed. If symptoms worsen, return to ED. Patient is given note to return to work on Sunday05/28/17
--- NOTE | 2017-05-26 13:57 | DS ---
HISTORY: Mr. Romero is a 56-year-old male with positive complaints of chest pain, presented with diabetes. Patient presented with cardiac enzymes negative. Stress test is negative. Patient discharged. FINAL DIAGNOSES: 1. Chest pain syndrome. 2. Diabetes. *------*. Brandon Ferris MD
--- NOTE | 2017-05-27 12:48 | CARD ---
APPROVED REPORT Protocol: DILCIA Test Type: Stress Nuclear Test Indications: CHEST PAIN,R/O ACS Medications: LIST SCAN Medical History: CHEST PAIN,R/O ACS Target HR: 164 bpm Resting ECG: normal Resting Heart Rate: 78 bpm Resting Blood Pressure: 122/80mmHg submaximum (85%): 139 bpm TEST SUMMARY PRETESTWARM-UP09:[id number]/80.0. EXERCISESTAGE 103:[id number]/80.0. EXERCISESTAGE 202:[id number]/80.0. EXERCISESTAGE 302:[id number]/80.0. EXERCISESTAGE 400:[id number]/.0. [id number]/80.0. POST EXERCISE Reason for Termination: Target heart rate achieved Target HR: No Max HR: 134 bpm 81% of Maximum Predicted HR: 164 bpm Exercise duration: 08:03 min:sec, 4 Stage Exercise capacity: 11.4METs Max Blood Pressure: 180/80mmHg Blood Pressure response to exercise: normal resting BP - appropriate response Heart Rate response to exercise: appropriate Chest Pain: No, none Angina index: 0 Arrhythmia: No, none ST Change: No, none Deviation: 0 mm INTERPRETATION Stress EKG Conclusion: AWAIT NUCLEAR IMAGES EXAM: Myocardial Perfusion REST/STRESS Imaging Protocol The imaging protocol used to acquire images was Rest Tc-99m/stress Tc-99m 1 day Rest Spect myocardial perfusion imaging was performed in supine position 45 minutes following the injection of 12.4 mCi of Tc-99 Myoview. Gated Stress Spect was performed 55 minutes after intravenous 31.8 mci Tc-99 Myoview injection. The images were gated to evaluate regional wall motion and calculate ventricular ejection fraction.Images were reconstructed using backfilter projection method in short horizontal and verticle long axis. Spect slices were generated. RESTING DATA EDV82.40prGU7.80L/min ESV29.00mlMyocardial Wcfu057.00g Av. Heart Rate73.00bpm EF65.00% STRESS DATA EDV99.72djNY2.70L/min ESV29.00mlMyocardial Zzcd720.00g EF71.00% Regional WT score at stress:1.00 Regional WM score at stress:0.00 Summed WT score at stress:6.00 Av. Heart Rate82.00bpmSummed WM score at stress:0.00 LV Perf. Quant 17 Seg. SSS2.00 17 Seg. SRS0.00 17 Seg. SDS2.00 Stress Defect Extent (% LAD)0.00Rest Defect Extent (% LAD)0.00Rev. Defect Extent (% LAD)0.00 Stress Defect Extent (% LCX)0.00Rest Defect Extent (% LCX)0.00Rev. Defect Extent (% LCX)0.00 Stress Defect Extent (% RCA)0.00Rest Defect Extent (% RCA)0.00Rev. Defect Extent (% RCA)0.00 Stress Defect Extent (% SHERLEY)0.00Rest Defect Extent (% SHERLEY)0.00Rev. Defect Extent (% SHERLEY)0.00 Other Information Quality:Excellent Overall Exercise Capacity: Normal IMPRESSION Normal Myocardial Perfusion exercise stress study Global LV Function: Normal Stress Test Summary: Normal LV Perfusion Summary: Normal Left Ventricle LV Size/Shape: The left ventricle is normal size. LV Function:Left ventricle systolic function is normal. The Ejection Fraction is 55-60%. Regional Wall Motion:No regional wall motion abnormalities noted. Metabolism/Perfusion There are no perfusion/metabolism defects. Conclusion 1. The stress and resting images show normal perfusion.
== END 2017-05-25 14:56 | disposition home or self-care (01) | DRG 313 ==
LOC: C.ER 11:11 → C.9E 15:14 → C.6T 16:18 → OBSVTOIN 05-24 15:18
PROVIDERS: ADMIT Internal Medicine Pulmonary Disease; ATTEND Internal Medicine Pulmonary Disease
DX: R07.9 Chest pain, unspecified (principal); I10 Essential (primary) hypertension; E11.9 Type 2 diabetes mellitus without complications; Z79.84 Long term (current) use of oral hypoglycemic drugs; E03.9 Hypothyroidism, unspecified